=== PATIENT | male | born 1985 | race Caucasian/White ===

== ENCOUNTER 2016-07-15 20:15 | Inpatient (IN) | payer BC ==
[~2016-07-15] VITALS: Ht 175.3 cm; Wt 89.1 kg
[2016-07-15] MEDS ORDERED: ZOLPIDEM TARTRATE 10 MG TABLET PO PRN (22:00)
[2016-07-15] MEDS ORDERED: LORazepam 2 MG TABLET PO PRN (22:00)
[2016-07-15] MEDS ORDERED: HALOPERIDOL 5 MG TABLET PO PRN (22:00)
[2016-07-15 22:30] VITALS: BP 138/97
[2016-07-16 06:56] LABS: BASOPHILS # (AUTO) 0.05 K/uL (0.00-0.20); BASOPHILS % (AUTO) 0.7 % (0.0-2.0); EOSINOPHILS # (AUTO) 0.13 K/uL (0.00-0.70); EOSINOPHILS % (AUTO) 1.67 % (1.0-6.0); HEMATOCRIT 52.1 % (41-53); HEMOGLOBIN 17.7 g/dL (13.5-17.5); LYMPHOCYTES # (AUTO) 2.3 K/uL (1.0-4.8); LYMPHOCYTES % (AUTO) 29.3 % (22.0-44.0); MEAN CORPUSCULAR HEMOGLOBIN 32.2 pg (26.0-34.0); MEAN CORPUSCULAR HGB CONC 33.9 G/dL (31.0-37.0); MEAN CORPUSCULAR VOLUME 95 fL (80-100); MONOCYTES # (AUTO) 0.7 K/uL (0.1-1.0); MONOCYTES % (AUTO) 9.1 % (2.0-9.0); NEUTROPHILS # (AUTO) 4.7 K/uL (1.8-7.7); NEUTROPHILS % (AUTO) 59.3 % (40.0-70.0); PLATELET COUNT (AUTO) 174 K/uL (150-450); RED CELL DISTRIBUTION WIDTH 12.3 % (11.5-14.5); WHITE BLOOD COUNT (AUTO) 7.9 K/uL (4.5-11.0)
[2016-07-16 07:05] LABS: ALANINE AMINOTRANSFERASE 72 U/L (12-78); ALBUMIN 4.2 g/dL (3.4-5.0); ANION GAP 10 mmol/L (8-16); ASPARTATE AMINOTRANSFERASE 41 U/L (15-37); BILIRUBIN,TOTAL 0.8 mg/dL (0.1-1.0); CALCIUM, TOTAL 9.1 mg/dL (8.8-10.5); CARBON DIOXIDE 27 mmol/L (22-29); CHLORIDE 102 mmol/L (98-107); CREATININE 0.86 mg/dL (0.60-1.30); GLOMERULAR FILTR. RATE CALC > 60 mL/min (>60); POTASSIUM 4.4 mmol/L (3.5-5.1); SODIUM SERUM 139 mmol/L (136-145); TOTAL PROTEIN, SERUM 7.8 g/dL (6.4-8.2); UREA NITROGEN, BLOOD 17 mg/dL (7-18)
[2016-07-16 08:08] VITALS: BP 140/96
[2016-07-16] MEDS ORDERED: ACETAMINOPHEN 325 MG TABLET PO PRN (09:45)
[2016-07-16] MEDS ORDERED: ONDANSETRON HCL 4 MG TABLET PO PRN (09:45)
[2016-07-16] MEDS ORDERED: BACITRACIN 28.4 GM OINTMENT TP PRN (09:45)
[2016-07-16] MEDS ORDERED: LOPERAMIDE HCL 2 MG CAPSULE PO PRN (09:45)
[2016-07-16] MEDS ORDERED: IBUPROFEN 600 MG TABLET PO PRN (09:45)
[2016-07-16] MEDS ORDERED: CloNIDine HCL 0.1 MG TABLET PO PRN (09:45)
[2016-07-16] MEDS ORDERED: MAGNESIUM HYDROXIDE SUSPENSION 30 ML UDCUP PO PRN (09:45)
[2016-07-16] MEDS ORDERED: ALBUTEROL SULFATE HFA 90 MCG/PUFF 8 GM INHALER IH PRN (09:45)
[2016-07-16] MEDS ORDERED: BENZOCAINE/MENTHOL LOZENGE [8 LOZENGES/PACKET] MM PRN (09:45)
[2016-07-16] MEDS ORDERED: MAG HYDROX/AL HYDROX/SIMETH ES 30 ML SUSPENSION UDCUP PO PRN (09:45)
[2016-07-16] MEDS ORDERED: PETROLATUM,WHITE 71 GM JELLY TP PRN (09:45)
[2016-07-16] MEDS ORDERED: MUPIROCIN CALCIUM 2% 15 GM CREAM TP SCH (17:00)
== END 2016-07-16 18:15 | disposition home or self-care (01) | DRG 881 ==
LOC: 3EI 20:15
PROVIDERS: ADMIT Psychiatry & Neurology Child & Adolescent Psychiatry; ATTEND Psychiatry & Neurology Child & Adolescent Psychiatry
DX: F43.21 Adjustment disorder with depressed mood (principal); S61.512A Laceration without foreign body of left wrist, initial encounter; F17.210 Nicotine dependence, cigarettes, uncomplicated; Z72.89 Other problems related to lifestyle; W26.0XXA Contact with knife, initial encounter; Y93.89 Activity, other specified; Y92.89 Other specified places as the place of occurrence of the external cause; Y99.8 Other external cause status
CPT/HCPCS: J3535